=== PATIENT | female | born 1985 | race Two or more races ===

== ENCOUNTER 2025-02-06 23:31 | Emergency (ER) | payer OTHER, SELFPAY ==
[2025-02-06 23:39] VITALS: BMI 18.3
--- NOTE | 2025-02-07 00:13 | ED_ITS ---
HPI - Skin/Abscess/Foreign Bdy General Chief complaint: Skin/Abscess/Foreign Body Stated complaint: left ring finger injury Source: patient Mode of arrival: ambulatory Limitations: no limitations History of Present Illness ED Provider: CRISTOPHER HPI narrative: 39 yo female here with L ring finger paronychia seen at yesterday and lanced as well as bactrim but rings are causing finger to swell - she denies fevers. She is here for further care and mostly ring removal. complaint: abscess/boil Onset (ago): day(s) (1) Location: L hand Severity: moderate Quality: aching Pain Consistency: constant Relieving factors: none Exacerbating factors: palpation Context: none Treatments prior to arrival: antibiotic and other (drainage at ) Related Data Previous Rx's ?Medication ?Instructions ?Recorded amoxicillin 875 mg-potassium 1 tab PO BID #13 tabs 02/07/25 clavulanate 125 mg tablet morphine 15 mg immediate release 15 mg PO Q6H PRN pain #10 tabs 02/07/25 tablet ondansetron 4 mg disintegrating 4 mg PO Q8H PRN nausea and 02/07/25 tablet vomiting #20 tabs Allergies Allergy/AdvReac Type Severity Reaction Status Date / Time ibuprofen Allergy Unknown Verified 02/06/25 23:44 Review of Systems Review of Systems: Constitutional : No Fever, No Chills ENT/Mouth : No sore throat, No Rhinorrhea Eyes: No Eye Pain, No Swelling, No Redness Cardiovascular : No Chest Pain, No SOB Respiratory : No Cough, No Sputum Gastrointestinal : No Nausea, No Vomiting, No Diarrhea, No abdominal Pain Genitourinary : No Dysuria, No Hematuria Musculoskeletal : No joint pain, No Myalgias, No Joint Swelling Skin : pos Skin Lesions, positive skin rash All other systems reviewed and are negative PMFSH Past Medical History Medical History No pertinent past medical history Social History Social History (Updated 02/07/25 @ 00:17 by Patricia Villa DO) Patient Tobacco Use Status: Never used Tobacco Physical Exam Vital Signs: Vital Signs: Last Vital Signs Temp 97.7 F 02/07/25 00:16 Pulse 77 02/07/25 00:16 Resp 16 02/07/25 00:16 BP 127/54 L 02/07/25 00:16 Pulse Ox 98 02/07/25 00:16 O2 Del Method Room Air 02/07/25 00:16 BMI result Body Mass Index 18.3 Appearance: Alert. Oriented X3. No acute distress. Eyes: Pupils equal, round and reactive to light. ENT: Pharynx normal. Neck: Normal inspection. CVS: Pulses normal. Respiratory: No respiratory distress. Abdomen: atraumatic Skin: Skin warm and dry. L ring finger paronychia as well as tight rings causing swelling and pain, BCR intact Extremities: No lower extremity edema. Neuro: Oriented X 3. No motor deficit. No sensory deficit. CN2-12 intact Medications Administered Discontinued Medications Generic Name Dose Route Start Last Admin Trade Name Freq PRN Reason Stop Dose Admin Amoxicillin/Clavulanate Potassium 875 mg 02/07/25 00:12 02/07/25 00:20 Amoxicillin/Potassium Clav 875 Mg Tablet PO 02/07/25 00:13 875 mg ONCE ONE Administration Lidocaine HCl 5 ml 02/07/25 00:17 02/07/25 00:20 Lidocaine Hcl 1 % Mpf 5 Ml Vial SUBCUT 02/07/25 00:18 5 ml ONCE ONE Administration Morphine Sulfate 15 mg 02/07/25 00:12 02/07/25 00:20 Morphine Sulfate Immed Release 15 Mg Tablet PO 02/07/25 00:13 15 mg ONCE ONE Administration Ondansetron HCl 4 mg 02/07/25 00:12 02/07/25 00:20 Ondansetron Odt 4 Mg Tab.Rapdis TRANSLINGU 02/07/25 00:13 4 mg ONCE ONE Administration Medical Decision Making Medical Decision Making MDM Narrative: 39 yo female here with L ring finger paronychia not completely drained as well as swelling of the finger and need for rings to be cut off - she is NV intact, consent for ring cutter plan to remove rings I+D start on augmentin. Differential Diagnosis Differential Diagnoses: The differential diagnosis associated with the p resentation includes ring tourniquet, paronychia Independent Historian Clinical information obtained from an independent historian. History obtained from or confirmed by: Friend Prescription Management I considered prescription management with: Pain Medication, Antibiotic and Other Procedures Procedure Narrative Procedure Narrative: with consent used ring cutter and removed two rings - silver, silver and gold - handed back to patient Abscess I/D Site: hand (l 4th finger) Side (if applicable): left Local Anesthetic: lidocaine 1% Amount of anesthesia used (mL): 3 Technique: incised with blade Amount of fluid expressed (mL): 2 Sent for culture/gram staining?: No Irrigation: No Packing used?: iodoform Discharge Plan Discharge Clinical Impression: Paronychia of finger Qualifiers: Laterality: left Qualified Code(s): L03.012 - Cellulitis of left finger Patient Disposition: Home, Self-Care Instructions: Paronychia (ED) Additional Instructions: change dressing in 48 hours do not get wet return for numbness, increased redness, yellow drainage, fevers remove packing in 48 hours - it is okay if it falls out follow up with your doctor next week - Monday stop taking bactrim remove dressing if it feels numb or cold On amoxicillin-clavulanate, softer bowel movements are to be expected. Call your provider if you move your bowels more than 4 times a day, your bowel movements are almost all liquid, or you get a rash.? Prescriptions: New ondansetron 4 mg tablet,disintegrating 4 mg PO Q8H PRN (Reason: nausea and vomiting) Qty: 20 0RF amoxicillin-pot clavulanate 875-125 mg tablet 1 tab PO BID Qty: 13 0RF morphine 15 mg tablet 15 mg PO Q6H PRN (Reason: pain) Qty: 10 0RF Rx Instructions: partial fill okay; Partial Fill upon patient request.
[2025-02-07 00:16] VITALS: BP 127/54; PULSE 77; RESP 16; TEMP 36.5; O2SAT 98
[2025-02-07] MEDS: Amoxicillin/Potassium Clav 875 MG TABLET PO (00:20)
[2025-02-07] MEDS: Ondansetron ODT 4 MG TAB.RAPDIS TRANSLINGU (00:20)
[2025-02-07] MEDS: Lidocaine HCl 1 % MPF 5 ML VIAL SUBCUT (00:20)
[2025-02-07] MEDS: Morphine Sulfate Immed Release 15 MG TABLET PO (00:20)
[2025-02-07 00:37] VITALS: BP 127/54; PULSE 77; RESP 16; TEMP 36.5; O2SAT 98
--- OUTSIDE RECORDS SUMMARY | 2025-02-07 00:44 | XMS_ITS | Encounter Summary ---
Author Organization [facility] Address [address] [place] [address] Care Team Providers Care Architect Manager Name Role Phone Pcp, No Primary Care Provider Unavailabl e Encounter Details Date Type Department Care Team (Latest Contact Info) Description 02/05/2025 Travel Social History Tobacco Use Types Packs/Day Years Used Date Smoking Tobacco: Never Smokeless Tobacco: Never Alcohol Use Standard Drinks/Week Comments Never 0 (1 standard drink = 0.6 oz pur e alcohol) Comments No Sex and Gender Information Value Date Recorded Sex Assigned at Not on file Legal Sex Female 8:39 AM EDT Gender Identity Not on file Sexual Orientation Not on file documented as of this encounter Plan of Treatment Not on file documented as of this encounter Visit Diagnoses Not on filedocumented in this encounter Care Teams Architect Manager Relationship Specialty Start Date End Date Pcp, No PCP - General General Medicine 12/29/24 documented as of this encounter
--- OUTSIDE RECORDS SUMMARY | 2025-02-07 00:44 | XMS_ITS | Encounter Summary ---
Author Organization [facility] Address [address] [place] [address] Care Team Providers Care Sole Blacker Name Role Phone Pcp, No Primary Care Provider Unavailabl e Reason for Visit * Reason Comments Finger Problem Pt has swelling & pu s on LF ring finger x 1 day Encounter Details Date Type Department Care Team ([facility] st Contact Info) Description 02/05/2025 8:40 AM EDT Office Visit [facility] [address] [id number] Tahir Earl MD [address] [place] [address] Noris Yu, TRIAGE REGISTER NURSE [address] [place] [address] Paronychia of left ring finger (Primary Dx) Social History Tobacco Use Types Packs/Day Years Used Date Smoking Tobacco: Never Smokeless Tobacco: Never Tobacco Cessation:Counseling Given: Not Answered Alcohol Use Standard Drinks/Week Comments Never 0 (1 standard drink = 0.6 oz pur e alcohol) Comments No Sex and Gender Information Value Date Recorded Sex Assigned at Not on file Legal Sex Female 8:39 AM EDT Gender Identity Not on file Sexual Orientation Not on file documented as of this encounter Last Filed Vital Signs Vital Sign Reading Time Taken Comments Blood Pressure 119/81 02/05/2025 9:06 AM EDT Pulse 73 02/05/2025 9:06 AM EDT Temperature 36.8 ??C (98.3 ??F) 02/05/2025 9:06 AM ED T Respiratory Rate 16 02/05/2025 9:06 AM EDT Oxygen Saturation 98% 02/05/2025 9:06 AM EDT Inhaled Oxygen Concentration - - Weight 61.2 kg (135 lb) 02/05/2025 9:06 AM EDT Height 182.9 cm (6') 02/05/2025 9:06 AM EDT Body Mass Index 18.31 02/05/2025 9:06 AM EDT documented in this encounter Progress Notes * Noris RIO Yu - 02/05/2025 9:23 AM EDT Assessment & Plan 1. Paronychia of left ring finger - sulfamethoxazole-trimethoprim (BACTRIM DS,SEPTRA DS) 800-160 MG per tablet; Take 1 tablet by mouth 2 (two) times a day. Dispense: 7 tablet; Refill: 0 Medical Decision Making and Data Synthesis: Discussed pathophysiology with patient. Advised to begin antibiotic, refrain from occlusive shoes if possible and f/u here if symptoms worsen while on antibiotics. Return to the urgent care or go to the ER if symptoms get worse or do not improve. Drainage of Paronychia Procedure Note: - Paronychia location: Left ring finger - The procedure and alternatives, as well as the benefits and risks, were explained to the patient prior to beginning the procedure. Verbal consent was obtained. - The area was prepped with Hibiclens and iodine. The area was prepared and draped in the usual, sterile manner. - An 11 blade was used to puncture the area of cellulitis. - Purulent material was able to be expressed. - There were no complications of the procedure and the pt tolerated the procedure well. Communication barriers and lifestyle preferences were addressed with the patient. The care plan including medications and self-management goals were reviewed to the best of the patient's ability. Allquestions and concerns were answered. Patient and/or family verbalized understanding of the plan ofcare. Subjective HPI Chief Complaint: nail pain Location: left fingers Duration: 1 day Context: Patient noted swelling to the ring finger with pus. Has attempted to ice and soak without relief in symptoms. Severity: moderate Other Pertinent History: Noris Lopez is a 39 y.o. female who presents for evaluation of pain to above nailbed for the past 1 days. Denies any drainage but notes associated swelling around the nailbed. Denies fever/chills, flu-like symptoms. Has full range of motion of extremity of digit. Review of Systems: Constitutional: no fever, chills Respiratory: No cough Cardiac: No palpitations Skin: +nail bed pain MSK: no joint pain or swelling Neuro: No numbness, tingling to extremities History reviewed. No pertinent past medical history. Current Outpatient Medications Medication Sig Dispense Refill sulfamethoxazole-trimethoprim (BACTRIM DS,SEPTRA DS) 800-160 MG per tablet Take 1 tablet by mouth 2(two) times a day. 7 tablet 0 Allergies[1] History reviewed. No pertinent family history. Objective Vitals: 02/05/25 0906 BP: 119/81 Pulse: 73 Resp: 16 Temp: 98.3 ??F (36.8 ??C) SpO2: 98% Weight: 61.2 kg (135 lb) Height: 1.829 m (6') General: Well-appearing, in no acute distress. Head: Normocephalic, atraumatic. Extremities: No peripheral edema. Normal capillary refill. Skin: Erythema and induration noted around nailbed of left Ring finger with associated tenderness, without discharge Neurologic: Moves all extremities equally, sensation globally intact, speaking clearly and appropriately. MSK: No bony tenderness, or arthralgias. Noris Yu APRN 02/05/25 9:23 AM [1] Allergies Allergen Reactions Ibuprofen Hives documented in this encounter Plan of Treatment Not on file documented as of this encounter Visit Diagnoses Diagnosis Paronychia of left ring finger- Primary documented in this encounter Care Teams Sole Blacker Relationship Specialty Start Date End Date Pcp, No PCP - General General Medicine 12/29/24 documented as of this encounter
--- OUTSIDE RECORDS SUMMARY | 2025-02-07 00:44 | XMS_ITS | Clinical Summary ---
Author Organization [facility] Address [address] [place] [address] Care Team Providers Care Environmental Test Technician Name Role Phone Pcp, No Primary Care Provider Unavailabl e Allergies Active Allergy Reactions Criticality Noted Date Comments Ibuprofen Hives Medium 02/05/2025 Medications sulfamethoxazole -trimethoprim (BACTRIM DS,SEPTRA DS) 800-160 MG per tabletIndication s:Paronychia of left ring finger Take 1 tablet by mouth 2 (two) times a day. 7 tablet 02/05/2025 Active Active Problems No known active problems Encounters Date Type Department Care Team Description 02/05/2025 8:40 AM EDT Office Visit [facility] [address] [phone] Tahir Earl MD Lapierre, Kathryn, APRN Paronychia of left ring finger (Primary Dx) 02/05/2025 Travel from Last 3 Months Social History Tobacco Use Types Packs/Day Years [...] on file Sexual Orientation Not on file Last Filed Vital Signs Vital Sign Reading [...] Mass Index 18.31 02/05/2025 9:06 AM EDT Plan of Treatment Health Maintenance Due Date Last Done Comments Hepatitis C Virus Screening 1983 HIV Screening 1996 DTaP/Tdap/Td Vaccines (1 - Tdap) 2002 Hepatitis B Vaccines (1 of 3 - 19+ 3-dose series) 2002 Pap Smear (Ages 21-65) 2004 Mammogram 2023 COVID-19 Vaccine ( - 2023-2 5 season) 2024 Influenza Vaccine 05/02/2025 HPV Vaccines Aged Out No longer eligi ble based on patient's age to complete this topic Pneumococcal Vaccine: Pediat lele (0-5 Years) and At-Risk Patients (6 to 49 Years) Aged Out No longer eligible b ased on patient's age to complete this topic Care Teams Environmental Test Technician Relationship Specialty Start Date End Date Pcp, No PCP - General General Medicine 12/29/24
== END 2025-02-07 00:40 | disposition home or self-care (01) ==
LOC: HO.ED 02-07 00:41
PROVIDERS: Emergency Provider Emergency Medicine
DX: L03.012 Cellulitis of left finger (principal)
CPT/HCPCS: 10060; 99283; 99284; J2003